=== PATIENT | male | born 1995 | race Caucasian/White ===

== ENCOUNTER 2017-07-31 20:20 | Emergency (ER) | payer BC, MEDICAID, OTHER ==
[~2017-07-31] VITALS: Ht 162.6 cm; Wt 95.9 kg
[2017-07-31 20:31] VITALS: Ht 162.6 cm; Wt 95.9 kg
[2017-07-31] MEDS ORDERED: HYDROCODONE/APAP (5/325) TAB PO ONE (22:00)
--- NOTE | 2017-07-31 22:46 | RADRPT ---
PROCEDURE: XR Left Ankle. CLINICAL INDICATION: Injury to left ankle. TECHNIQUE: AP, oblique and lateral views of the left ankle were performed. COMPARISON: None. FINDINGS: There is normal mineralization and alignment. No acute fracture or osseous lesion is identified. The joints are normal. Soft tissue swelling over the lateral left ankle. Posterior dorsal calcaneal enthesophyte. IMPRESSION: Soft tissue swelling, without acute fracture. RPTAT: [facility] Physician Gunnar Date Time Electronically viewed and signed by Physician Gunnar on 07/31/2017 22:46 RS/
--- NOTE | 2017-07-31 23:01 | ERD ---
ER Documentation Chief Complaint Chief Complaint Left ankle pain s/p playing basketball HPI The patient is a 21-year-old male who presents to the Emergency Department with complaint of left lateral ankle pain. The patient reports that earlier this evening he jumped up while playing basketball, and landed on another player's foot, causing an inversion injury of his left ankle. He has since developed pain and swelling to the lateral aspect of the left ankle. The pain is worse with weightbearing activity, and mildly improved at rest. He reports 6 out of 10, pulsating/throbbing pain localized to the left ankle joint. Denies any restricted range of motion. Denies numbness, paresthesias or weakness of the distal extremity. No other complaints at this time. ROS All systems reviewed and are negative except as per history of present illness. Medications Home Meds Active Scripts Ibuprofen* (Motrin*) 600 Mg Tab, 600 MG PO Q6, #30 TAB Prov:ROXANA HARDY PA-C 07/31/17 Allergies Allergies: Coded Allergies: No Known Allergy (Unverified , 07/31/17) PMhx/Soc Medical and Surgical Hx: pt denies Medical Hx, pt denies Surgical Hx Hx Alcohol Use: No Hx Substance Use: No Hx Tobacco Use: No Smoking Status: Never smoker Physical Exam Vitals Vital Signs Date Time Temp Pulse Resp B/P Pulse Ox O2 Delivery O2 Flow Rate FiO2 07/31/17 20:31 95.9 106 20 132/79 98 Physical Exam GENERAL: Well-developed, well-nourished male in no acute distress. HEENT: Head is normocephalic, atraumatic. No scleral pallor or icterus. Conjunctivae pink. Moist mucous membranes. NECK: Supple. RESPIRATORY: Lungs are clear to auscultation bilaterally. Equal breath sounds. CARDIOVASCULAR: Regular rate and rhythm. Distal pulses are palpable, 2+ bilaterally. Capillary refill is less than 2 seconds. No murmurs, rubs or gallops. EXTREMITIES: No clubbing or cyanosis. Moderate edema of the left lateral ankle. Pain on palpation of the distal aspect of the fibula. Pain on palpation posterior to the lateral malleolus. Pain on dorsiflexion of the left ankle against resistance. No proximal tib/fib tenderness. Normal skin perfusion. Normal pulses, 2+ pulses peripherally bilaterally. The ankle and foot is neurovascularly intact. No tenderness to palpation to the base of the fifth metatarsal. 5/5 sensation and motor of the upper and lower extremities bilaterally. Full range of motion of the upper extremities. Muscle tone is normal. No erythema noted. Anterior drawer test negative. Talar tilt test negative. Compartments are soft. NEUROLOGIC: The patient is alert, awake and oriented x 3. No focal neurologic deficits. Motor and sensation grossly intact. Speech is normal. INTEGUMENT: Skin is intact, warm, and dry. No lacerations or abrasions. PSYCHIATRIC: Cooperative. Appropriate. Results 24 hrs Current Medications Medications (Trade) Dose Ordered Sig/Estuardo Route PRN Reason Start Time Stop Time Status Last Admin Dose Admin Acetaminophen/ Hydrocodone Bitart ([place] (5/325)) 1 tab ONCE ONCE PO 07/31/17 22:00 07/31/17 22:01 DC 07/31/17 22:47 Procedures/MDM DIAGNOSTIC TESTS AND INTERPRETATION: PROCEDURE: XR Left Ankle. CLINICAL INDICATION: Injury to left ankle. TECHNIQUE: AP, oblique and lateral views of the left ankle were performed. COMPARISON: None. FINDINGS: There is normal mineralization and alignment. No acute fracture or osseous lesion is identified. The joints are normal. Soft tissue swelling over the lateral left ankle. Posterior dorsal calcaneal enthesophyte. IMPRESSION:Soft tissue swelling, without acute fracture. Physician Gunnar Date Time Electronically viewed and signed by Physician Gunnar on 07/31/2017 22:46 NIELS WRAP APPLICATION: INDICATION: Ankle sprain. LOCATION: Left lower extremity, ankle. NEUROVASCULAR EXAM: The patients extremity was neurovascularly intact prior to and status post niels wrap placement. MEDICAL DECISION MAKING: This is a 21-year-old male presenting to the Emergency Department with left ankle pain after an inversion injury while playing basketball. The patient had moderate swelling and tenderness localized to the lateral malleolus on physical examination. Differential diagnosis includes, but is not limited to, soft tissue injury, sprain, strain, dislocation, subluxation, contusion, fracture, vascular injury, peripheral nerve injury, compartment syndrome. Compartments soft, with no evidence of compartment syndrome. No pain out of proportion to examination. No restricted range of motion. Distal extremity neurovascularly intact. No fractures or dislocations were noted on the x-ray ordered. His condition improved during his stay after the administration of [place]. On reevaluation, the patient reports no new complaints. His lower extremity was placed in an niels wrap and he was given crutches for further comfort. Upon my review and interpretation of the patient's presentation, clinical data, and overall ER course I believe the patient's symptoms are most consistent with left ankle sprain. At this time the patient is in stable condition and therefore can be discharged home with strict return precautions for signs of acute deterioration of condition. The patient is given a prescription for ibuprofen for pain control. He is instructed on further outpatient pain control methods, including rest, icing and elevation. He is advised to follow up with his primary care provider as well as orthopedics for reevaluation and further management within 2-3 days, or return to the ER sooner for worsening symptoms. I shared my medical decision making, plan and the diagnostic results with the patient and he verbally understands and agrees with the plan for further observation and care as an outpatient. At the time of discharge all questions were answered. Departure Diagnosis: Primary Impression: Left ankle pain Chronicity: acute Qualified Code: M25.572 - Acute left ankle pain Additional Impression: Left ankle sprain Encounter type: initial encounter Involved ligament of ankle: anterior talofibular ligament Qualified Code: S93.492A - Sprain of anterior talofibular ligament of left ankle, initial encounter Condition: Stable Patient Instructions: R.I.C.E., Self-Care for Strains and Sprains, Sprain, Ankle, With X-Ray Additional Instructions: Call your primary care doctor TOMORROW for an appointment during the next 2-3 days.See the doctor sooner or return here if your condition worsens before your appointment time. ROXANA HARDY PA-C Jul 31, 2017 23:01
[2017-07-31] MEDS ORDERED: IBUP-1542 PO (23:02)
== END 2017-07-31 23:15 | disposition home or self-care (01) ==
LOC: FTE 20:20
DX: S93.492A Sprain of other ligament of left ankle, initial encounter (principal); X50.9XXA Other and unspecified overexertion or strenuous movements or postures, initial encounter; Y92.9 Unspecified place or not applicable
CPT/HCPCS: 73610; 99283